=== PATIENT | female | born 1975 | race Caucasian/White ===

== ENCOUNTER 2019-08-04 18:01 | Emergency (ER) | payer MEDICAID ==
[~2019-08-04] VITALS: Ht 157.5 cm; Wt 47.2 kg
--- NOTE | 2019-08-04 18:29 | NUR ---
PATIENT BIB SELF C/O R TOOTH PAIN AND SWELLING FOR 2 DAYS. RESTING ON BED. NO ACUTE DISTRESS. WILL CONTINUE TO MONITOR
[2019-08-04] MEDS ORDERED: HYDROCODONE/APAP 5/325MG 1 EACH TABLET PO ONE (19:00)
[2019-08-04] MEDS ORDERED: IBUPROFEN 600 MG TABLET PO ONE ×2 (19:00→19:11)
[2019-08-04] MEDS ORDERED: HYDROCODONE/APAP 5/325MG 1 EACH TABLET ONE (19:11)
[2019-08-04 19:16] VITALS: BP 122/76
--- NOTE | 2019-08-04 19:16 | NUR ---
Patient discharged to home in stable condition. Prescription provided. Written and verbal after care instructions given. Patient verbalizes understanding of instruction.
== END 2019-08-04 19:17 | disposition home or self-care (01) ==
LOC: ER 18:07
DX: K04.7 Periapical abscess without sinus (principal); Z98.890 Other specified postprocedural states; Z60.2 Problems related to living alone

== ENCOUNTER 2019-10-12 14:30 | Emergency (ER) | payer MEDICAID ==
[~2019-10-12] VITALS: Ht 157.5 cm; Wt 47.2 kg
[2019-10-12 14:39] VITALS: BP 125/87
--- NOTE | 2019-10-12 15:03 | NUR ---
Patient discharged to home in stable condition. Written and verbal after care instructions given. Patient verbalizes understanding of instruction.
== END 2019-10-12 15:04 | disposition home or self-care (01) ==
LOC: ER 14:33
DX: K04.7 Periapical abscess without sinus (principal); Z98.890 Other specified postprocedural states

== ENCOUNTER 2019-10-14 12:33 | Emergency (ER) | payer MEDICAID ==
[~2019-10-14] VITALS: Ht 157.5 cm; Wt 47.2 kg
[2019-10-14 12:43] VITALS: BP 132/71
[2019-10-14] MEDS ORDERED: IBUPROFEN 600 MG TABLET PO ONE (13:30)
[2019-10-14] MEDS ORDERED: TRAMADOL HCL 50 MG TABLET PO ONE (13:30)
== END 2019-10-14 13:37 | disposition home or self-care (01) ==
LOC: ER 12:35
DX: K04.7 Periapical abscess without sinus (principal); Z88.6 Allergy status to analgesic agent

== ENCOUNTER 2021-12-13 18:59 | Emergency (ER) | payer MEDICAID ==
[~2021-12-13] VITALS: Ht 157.5 cm; Wt 47.6 kg
--- NOTE | 2021-12-13 19:07 | NUR ---
BIB SELF C/O VAGINAL BLEEDING X 1.5 MONTHS.
--- NOTE | 2021-12-13 20:03 | NUR ---
URINE COLLECTED AND SENT TO LAB
[2021-12-13 20:06] LABS: BASOPHILS # (AUTO) 0.1 K/uL (0.0-0.2); EOSINOPHILS % (AUTO) 3.3 % (0.0-6.0); HEMATOCRIT 41 % (33-45); HEMOGLOBIN 13.7 g/dL (11.5-14.8); LYMPHOCYTES # (AUTO) 1.8 K/uL (0.8-4.8); LYMPHOCYTES % (AUTO) 24.8 % (20.0-44.0); MEAN CORPUSCULAR HGB CONC 33 g/dl (31.0-36.0); MEAN CORPUSCULAR VOLUME 93 fL (82-100); MONOCYTES # (AUTO) 0.4 K/uL (0.1-1.30); MONOCYTES % (AUTO) 5.5 % (2.0-12.0); NEUTROPHILS # (AUTO) 4.6 K/uL (1.8-8.9); NEUTROPHILS % (AUTO) 65.4 % (43.0-81.0); PLATELET COUNT (AUTO) 255 K/uL (150-450); RED BLOOD CELL COUNT(AUTO) 4.44 MIL/uL (4.0-5.2); WHITE BLOOD COUNT (AUTO) 7.1 K/uL (4.3-11.0)
[2021-12-13 20:08] LABS: CALCIUM, SERUM 9.4 mg/dL (8.5-10.1); CREATININE 0.8 mg/dL (0.6-1.3); POTASSIUM 3.7 mmol/L (3.5-5.1)
[2021-12-13] MEDS ORDERED: NORG1TAB86 PO (20:20)
[2021-12-13 20:32] VITALS: BP 109/85
--- NOTE | 2021-12-13 20:32 | NUR ---
Patient discharged to home in stable condition. Written and verbal after care instructions given. Patient verbalizes understanding of instruction. pt ambulatory with a steady gait
== END 2021-12-13 20:32 | disposition home or self-care (01) ==
LOC: ER 19:02
DX: N93.8 Other specified abnormal uterine and vaginal bleeding (principal); Z86.2 Personal history of diseases of the blood and blood-forming organs and certain disorders involving the immune mechanism; Z88.8 Allergy status to other drugs, medicaments and biological substances
CPT/HCPCS: 36415; 80048-TC; 84702-TC; 84703-TC; 85025-TC